=== PATIENT | male | born 1950 | race Caucasian/White ===

== ENCOUNTER 2019-06-28 06:25 | Day surgery (SDC) | payer MEDICARE ==
[~2019-06-28] VITALS: Ht 185.4 cm; Wt 103.9 kg
[~2019-06-28 06:25] MED LIST: FISH OIL 1,001000 MG PO; LOVASTATIN20 MG PO; VENTOLIN HFA18 GM INH
--- NOTE | 2019-06-28 08:04 | NUR ---
06/28/19 0804 Chiquita Ya 0800 PATIENT ARRIVES TO PACU SLEEPING, AWAKENS WITH VERBAL STIMULI, THEN BACK TO SLEEP. RESP EVEN AND UNLABORED, ROOM AIR SATS >95%. PASSING GAS.
--- NOTE | 2019-06-28 14:47 | OR ---
[facility] [address], [place] [address] Signed DATE OF OPERATION: 06/28/2019 SURGEON: Lew Ernst MD PREOPERATIVE DIAGNOSIS: Mother and maternal uncle with colon cancer in the late '70s or early 80s. POSTOPERATIVE DIAGNOSES: 1. 5 mm polyps x3, distal right colon. 2. 5 mm polyps x2, distal peptic flexure. 3. Minimal sigmoid diverticulosis. 4. Enlarged prostate (right greater than left). PROCEDURE: Colonoscopy with hot biopsy. ESTIMATED BLOOD LOSS: None. INDICATIONS: Kvng is a 68-year-old gentleman, asked to see me for his initial colonoscopy. He explained that his mother and maternal uncle both had colon cancer somewhere in the late '70s, may be the early s. He said he has no lower GI complaints. I gave him a pamphlet on colonoscopy and we looked at that together in detail. He understands the nature of the test along with its risks including, but not limited to, gas bloating, crampy abdominal pain, bleeding, perforation requiring surgery, and missed diagnosis. We also reviewed the need for IV conscious sedation. He understands he will need an adult person to take him home afterwards. He had expressed his understanding and wished to proceed. PROCEDURE NOTE: Kvng was taken into our endoscopy suite and placed in the left lateral decubitus position. He was given divided doses of 7 mg of Versed and 100 mcg of fentanyl to cover the case. A digital rectal exam was performed. He had no external hemorrhoids. Good sphincter tone. He does have an enlarged indurated prostate, the right side was greater than the left. After this, the adult colonoscope was introduced and advanced all the way around into the cecum under direct visualization of the camera without difficulty. His prep was good. The scope was slowly withdrawn. We took pictures throughout for photodocumentation. We could easily see the appendiceal orifice and the ileocecal valve. The above-mentioned polyps were easily removed with the help of the cautery. We Electronically Signed By: LEW ERNST MD 06/28/19 1447 PATIENT NAME: KVNG SALCEDO II OPERATIVE REPORT DATE OF : 54 REPORT #: [id number] PHYSICIAN: LEW ERNST MD PCP: JUAN PABLO WELSH REPORT IS CONFIDENTIAL AND NOT TO BE RELEASED WITHOUT AUTHORIZATION [facility] [address] [place] [address] Signed did see the diverticula in the sigmoid colon. They were moderate in size, but they were few in number and scattered about. The rectum was unremarkable. Upon retroflexion of the scope, there was no additional pathology noted above the anal canal. After this, the gas was suctioned out and the colonoscope removed. Kvng tolerated the procedure quite well. RECOMMENDATIONS: I will see Kvng back in my office in 7 to 14 days to review his results. No aspirin or NSAIDs for 1 week. MD VAN Ragsdale/LINNEA /[id number] cc: RONALD Nash MD Copies: JUAN PABLO WELSH ANDREW L MD ~ Electronically Signed By: LEW ERNST MD 06/28/19 1447 PATIENT NAME: KVNG SALCEDO II OPERATIVE REPORT DATE OF : 54 REPORT #: [id number] PHYSICIAN: LEW ERNST MD PCP: JUAN PABLO WELSH REPORT IS CONFIDENTIAL AND NOT TO BE RELEASED WITHOUT AUTHORIZATION
--- NOTE | 2019-06-29 13:38 | PATH ---
[facility] [address] [place], [place] [address] Signed SPECIMEN(S): A ASCENDING DISTAL POLYP SPECIMEN(S): B HEPATIC FLEXURE DISTAL POLYP SPECIMEN SOURCE: A. ASCENDING DISTAL POLYP B. HEPATIC FLEXURE DISTAL POLYP CLINICAL HISTORY: Screening colonoscopy, family history of colon cancer. MICROSCOPIC DESCRIPTION: Histologic sections of all submitted blocks are examined by light microscopy. These findings, together with the gross examination, support the pathologic diagnosis. FINAL PATHOLOGIC DIAGNOSIS: A. Mucosa, distal ascending colon, biopsy: - Tubular adenoma. B. Mucosa, colon, distal hepatic flexure, biopsy: - Tubular adenoma. LJA:cml:C2NR GROSS DESCRIPTION: Two specimens are received in two containers, labeled "JR." A. The specimen, labeled "JR, ascending distal polyp," is received in formalin and consists of six mckeon-white soft tissue fragments ranging from 0.2-0.3 cm in greatest dimension. The specimen is entirely submitted in cassette (A1). B. The specimen, labeled "JR, hepatic flexure distal polyp," is received in formalin and consists of three mckeon-white soft tissue fragments ranging from 0.2-0.3 cm in greatest dimension. The specimen is entirely submitted in cassette (B1). AR (under the direct supervision of a pathologist) The Gross Description was prepared using a voice recognition system. The report was reviewed for accuracy; however, sound-alike word errors, addition and/or deletions may occur. If there is any question about this report, please contact Client Services. PERFORMING LABORATORY: The technical component was performed by [facility], [address] [place] [address] (Desk Assistant: Susan Gao MD; CLIA# [id number]). Professional interpretation was performed by PATIENT NAME: LIDIA SALCEDO II PATHOLOGY DATE OF : 54 REPORT #: [id number] PHYSICIAN: [facility] PATHOLOG[facility] PCP: JUAN PABLO WELSH REPORT IS CONFIDENTIAL AND NOT TO BE RELEASED WITHOUT AUTHORIZATION [facility] [address] [place], [place] [address] Signed [facility], [facility], [address] [facility] [address], [place] [address] (Desk Assistant: Ad Michelle MD; CLIA# [id number]). Diagnostician: Ad Michelle MD Pathologist Electronically Signed 06/29/2019 Copies: ~ PATIENT NAME: LIDIA SALCEDO II PATHOLOGY DATE OF : 54 REPORT #: [id number] PHYSICIAN: BARB PATHOLOGY PCP: JUAN PABLO WELSH REPORT IS CONFIDENTIAL AND NOT TO BE RELEASED WITHOUT AUTHORIZATION
== END 2019-06-28 08:35 | disposition home or self-care (01) ==
LOC: OPS 06:25 → DS 06:25 → OPS 08:15 → DS 08:15 → OPS 08:35
PROVIDERS: Colon & Rectal Surgery
PROC: 0D5L8ZZ Destruction of Transverse Colon, Via Natural or Artificial Opening Endoscopic (ICD-10-PCS; 2019-06-28)
PROC: 0D5K8ZZ Destruction of Ascending Colon, Via Natural or Artificial Opening Endoscopic (ICD-10-PCS; principal; 2019-06-28 08:15)
DX: Z12.11 Encounter for screening for malignant neoplasm of colon (principal); D12.2 Benign neoplasm of ascending colon; D12.3 Benign neoplasm of transverse colon; K57.30 Diverticulosis of large intestine without perforation or abscess without bleeding; N40.0 Benign prostatic hyperplasia without lower urinary tract symptoms; E78.5 Hyperlipidemia, unspecified; J45.909 Unspecified asthma, uncomplicated; F17.210 Nicotine dependence, cigarettes, uncomplicated; Z80.0 Family history of malignant neoplasm of digestive organs; Z79.899 Other long term (current) drug therapy
CPT/HCPCS: 99153; G0500; J2250; J3010; J7120

== ENCOUNTER 2021-07-13 08:53 | Emergency (ER) | payer MEDICARE ==
[~2021-07-13] VITALS: Ht 185.4 cm; Wt 107.0 kg
[2021-07-13] MEDS ORDERED: HYDROCODON-ACE1 EA10 PO (13:06)
[2021-07-13] MEDS ORDERED: FLOMAX0.4 MG PO (13:06)
== END 2021-07-13 13:19 | disposition home or self-care (01) ==
LOC: ED 08:53
DX: N20.0 Calculus of kidney (principal); F17.200 Nicotine dependence, unspecified, uncomplicated; Z79.899 Other long term (current) drug therapy
CPT/HCPCS: 74176; 80053; 81001; 83690; 85025; 96374; 96375; 99284-25; J1885; J2405

== ENCOUNTER 2024-03-14 06:45 | Day surgery (SDC) | payer MEDICARE ==
[2024-03-12 13:09] VITALS: BP 133/96
[2024-03-12 13:19] VITALS: BP 133/96
[~2024-03-14] VITALS: Ht 185.4 cm; Wt 111.5 kg
[~2024-03-14 06:45] MED LIST changes: +FLOMAX0.4 MG PO; +GUAIFEN-CODEINE10 ML PO; +HYDROCODON-ACE1 EA10 PO; +PAXLOVID 300-11 EACH PO
[2024-03-14] MEDS ORDERED: IBLOOD GLUCOSE TEST STRIP 1 EA TEST VI PRN (07:00)
[2024-03-14] MEDS ORDERED: LIDOCAINE HCL 1% 5 ML SDV INJ ONE (07:00)
[2024-03-14] MEDS ORDERED: LACTATED RINGER'S 1,000 ML IV SCH (07:00)
[2024-03-14 07:01] VITALS: BP 143/72
[2024-03-14] MEDS ORDERED: LIDOCAINE HCL 2% 5 ML SDV ONE (07:52)
[2024-03-14] MEDS ORDERED: propofoL 200 MG/20 ML VIAL ONE (07:52)
[2024-03-14 09:17] VITALS: BP 142/84
--- NOTE | 2024-03-14 09:38 | NUR ---
03/14/24 0938 Kaylan Sloan 0891 PT ARRIVED IN PACU SLEEPY. ABD SOFT. 0900 AWAKENS, THEN FALLS BACK TO SLEEP. 914 SITTING UP IN BED TALKING TO STAFF. DC INSTRUCTIONS GIVEN. ALL QUESTIONS ANSWERED. 923 LEFT VIA W/C.
--- NOTE | 2024-03-14 10:23 | OR ---
[facility] [address] [place], [place] [address] Signed DATE OF OPERATION: 03/14/2024 SURGEON: Lew Ernst MD PREOPERATIVE DIAGNOSES: 1. Personal history of colonic polyps. 2. Diverticulosis. 3. Mother with colon cancer in her early 80s. 4. Maternal uncle with colon cancer in his early 80s. POSTOPERATIVE DIAGNOSES: 1. 4 mm polyp at 16 cm in the rectum. 2. 4 mm polyps at 50 cm, 60 cm, 70 cm and 52 cm in left colon. 3. Minimal sigmoid diverticulosis. 4. Moderate internal hemorrhoids. PROCEDURE: Colonoscopy with hot biopsy. ESTIMATED BLOOD LOSS: None. INDICATIONS: Kvng is a 73-year-old gentleman, asked to see me for a followup colonoscopy. I helped Kvng in 2019 at the age of 68 with his initial colonoscopy. He had five tubular adenomatous polyps removed. He also had diverticulosis. We know his mother and his maternal uncle both had colon cancer in their early 80s. Lan says he has no lower GI complaints. He said he is enjoying long term very much. In the office, I gave him a pamphlet on colonoscopy. We reviewed the nature of the test. There is risk including, but not limited to gas bloating, crampy abdominal pain, bleeding, perforation requiring surgery, and missed diagnosis. We also reviewed the written instructions for the bowel prep line by line. Also because of his large size and his very severe sleep apnea for which he cannot tolerate the CPAP mask, we always have monitored anesthesia care with propofol infusion for Kvng. He had expressed understanding and wished to proceed. DESCRIPTION OF PROCEDURE: Kvng was taken into our endoscopy suite and placed in the left lateral decubitus position. He was given monitored anesthesia care with propofol infusion per our nurse security project manager. A digital rectal exam was performed and this was unremarkable. The adult colonoscope was introduced and advanced under direct visualization of the camera without Electronically Signed By: LEW ERNST MD 03/14/24 1023 PATIENT NAME: KVNG SALCEDO II OPERATIVE REPORT DATE OF : 54 REPORT #: [id number] PHYSICIAN: LEW ERNST MD PCP: BETTE CHAU NP REPORT IS CONFIDENTIAL AND NOT TO BE RELEASED WITHOUT AUTHORIZATION [facility] [address] [place], [place] [address] Signed difficulty. His prep was quite good. We could easily see the appendiceal orifice and the ileocecal valve. The scope was then slowly withdrawn. We took several pictures throughout for photodocumentation. The above-mentioned polyps were easily removed with the help of hot biopsy forceps. He does have diverticula in the sigmoid colon. They are moderate in size, few in number and scattered about. Once in the rectum, the scope was retroflexed and he does have moderate internal hemorrhoid columns. After this, the gas suctioned out and the colonoscope removed. Kvng tolerated the procedure quite well. RECOMMENDATIONS: I will see Kvng back in my office in 7 to 14 days to review his results. Lew Ernst MD ALB/MODL /[id number] cc: MD Dr. Bette Ragsdale Copies: LEW ERNST MD ~ Electronically Signed By: LEW ERNST MD 03/14/24 1023 PATIENT NAME: KVNG SALCEDO II OPERATIVE REPORT DATE OF : 54 REPORT #: [id number] PHYSICIAN: LEW ERNST MD PCP: BETTE CHAU NP REPORT IS CONFIDENTIAL AND NOT TO BE RELEASED WITHOUT AUTHORIZATION
--- NOTE | 2024-03-16 18:09 | PATH ---
[facility] [address] [facility] [place] [facility] [place], [place] [address] Signed SPECIMEN(S): A RECTAL POLYP AT 16 CM SPECIMEN(S): B COLON POLYP AT 50 CM SPECIMEN(S): C COLON POLYP AT 60 CM SPECIMEN(S): D COLON POLYP AT 70 CM SPECIMEN(S): E COLON POLYP AT 52 CM SPECIMEN SOURCE: A. RECTAL POLYP AT 16 CM B. COLON POLYP AT 50 CM C. COLON POLYP AT 60 CM D. COLON POLYP AT 70 CM E. COLON POLYP AT 52 CM CLINICAL HISTORY: History of colon polyps, diverticulosis, family history of colon cancer, hemorrhoids FINAL PATHOLOGIC DIAGNOSIS: A. Rectal polyp at 16 cm: - Hyperplastic polyp (one fragment). B. Colon polyp at 50 cm: - Tubular adenoma (one fragment). C. Colon polyp at 60 cm: - Tubular adenoma (one fragment). D. Colon polyp at 70 cm: - Hyperplastic polyp (two fragments). - Focal mucosal erosion. E. Colon polyp at 52 cm: - Hyperplastic polyp (one fragment). JVR:clv MICROSCOPIC EXAMINATION: Histologic sections of all submitted blocks are examined by light microscopy. These findings, together with the gross examination, support the pathologic diagnosis. GROSS DESCRIPTION: A. The specimen, labeled and designated "Monse, rectal polyp at 16 cm," is received in formalin and consists of one mckeon soft tissue fragment, 0.3 cm. Entirely submitted in (A1). B. The specimen, labeled and designated "Redinger, colon polyp at 50 cm," is PATIENT NAME: LIDIA SALCEDO II PATHOLOGY DATE OF : 54 REPORT #: [id number] PHYSICIAN: RENEvirocyt GEREMIAS PCP: LAZARUS CHAU NP REPORT IS CONFIDENTIAL AND NOT TO BE RELEASED WITHOUT AUTHORIZATION [facility] [address] [place], [place] [address] Signed received in formalin and consists of two mckeon soft tissue fragments, ranging from 0.2-0.3 cm. Entirely submitted in (B1). C. The specimen, labeled and designated "Monse, colon polyp at 60 cm," is received in formalin and consists of one mckeon soft tissue fragment, 0.3 cm. Entirely submitted in (C1). D. The specimen, labeled and designated "Monse, colon polyp at 70 cm," is received in formalin and consists of two mckeon soft tissue fragments, ranging from 0.3-0.5 cm. Entirely submitted in (D1). E. The specimen, labeled and designated "Monse, colon polyp at 52 cm," is received in formalin and consists of one mckeon soft tissue fragment, 0.2 cm. Entirely submitted in (E1). VB (under the direct supervision of a pathologist) The Gross Description was prepared using a voice recognition system. The report was reviewed for accuracy; however, sound-alike word errors, addition and/or deletions may occur. If there is any question about this report, please contact Client Services. PERFORMING LABORATORY: Technical component was performed by [facility], [address] [place] [address] (CLIA# [id number]). Professional interpretation was performed by [facility], [address] [place] [id number] (CLIA#: [id number]). Diagnostician: Rd Stover MD Pathologist Electronically Signed 03/16/2024 Copies: ~ PATIENT NAME: LIDIA SALCEDO II PATHOLOGY DATE OF : 54 REPORT #: [id number] PHYSICIAN: BARB ARCHULETA PCP: LAZARUS CHAU NP REPORT IS CONFIDENTIAL AND NOT TO BE RELEASED WITHOUT AUTHORIZATION
== END 2024-03-14 09:24 | disposition home or self-care (01) ==
LOC: DS 06:45
PROVIDERS: ATTEND Colon & Rectal Surgery
PROC: 0DBP8ZX Excision of Rectum, Via Natural or Artificial Opening Endoscopic, Diagnostic (ICD-10-PCS; 2024-03-14)
PROC: 0DBG8ZX Excision of Left Large Intestine, Via Natural or Artificial Opening Endoscopic, Diagnostic (ICD-10-PCS; principal; 2024-03-14 08:15)
DX: D12.6 Benign neoplasm of colon, unspecified (principal); K63.5 Polyp of colon; K62.1 Rectal polyp; K64.8 Other hemorrhoids; K57.30 Diverticulosis of large intestine without perforation or abscess without bleeding; J45.909 Unspecified asthma, uncomplicated; G47.33 Obstructive sleep apnea (adult) (pediatric); E78.2 Mixed hyperlipidemia; E66.9 Obesity, unspecified; F17.200 Nicotine dependence, unspecified, uncomplicated; Z80.0 Family history of malignant neoplasm of digestive organs; Z68.33 Body mass index [BMI] 33.0-33.9, adult
CPT/HCPCS: 00811; J2001; J2704; J7121

== ENCOUNTER 2025-07-11 14:57 | Emergency (ER) | payer MEDICARE ==
[~2025-07-11] VITALS: Ht 185.4 cm; Wt 103.6 kg
[2025-07-11] MEDS ORDERED: DIPHTH,PERTUSS(ACELL),TET VAC 0.5 ML SYRINGE IM ONE (16:30)
[2025-07-11] MEDS ORDERED: predniSONE 20 MG TAB PO ONE (16:30)
[2025-07-11] MEDS ORDERED: HYDROCODON-ACE1 EA10 PO (16:50)
[2025-07-11] MEDS ORDERED: PREDNISONE20 MG PO (16:50)
[2025-07-11 17:03] VITALS: BP 142/90
== END 2025-07-11 17:05 | disposition home or self-care (01) ==
LOC: ED 14:57
DX: M54.10 Radiculopathy, site unspecified (principal); F17.200 Nicotine dependence, unspecified, uncomplicated; Z79.899 Other long term (current) drug therapy
CPT/HCPCS: 80053; 85025; 99283; J7512